=== PATIENT | female | born 1970 | race Caucasian/White ===

== ENCOUNTER 2024-06-28 07:03 | Outpatient (CLI) | payer OTHER, SELFPAY ==
--- NOTE | 2024-06-28 08:31 | W.ANESCHARGE ---
Anesthesia Charges Start Date/Time Anesthesia Start Date: 06/28/24 Anesthesia Start Time: 08:01 Stop Date/Time Anesthesia Stop Date: 06/28/24 Anesthesia Stop Time: 08:28
--- NOTE | 2024-06-28 08:41 | W.ANESCHARGE ---
Anesthesia Charges Start Date/Time Anesthesia Start Date: 06/28/24 Anesthesia Start Time: 08:01 Stop Date/Time Anesthesia Stop Date: 06/28/24 Anesthesia Stop Time: 08:28
== END 2024-06-28 07:04 | disposition home or self-care (01) ==
LOC: OP CLINIC 07:06
PROVIDERS: PCP Physician Assistant Medical; Visit Provider Surgery
DX: Z12.11 Encounter for screening for malignant neoplasm of colon (principal)
CPT/HCPCS: 00812; 45378; J2704